=== PATIENT | female | born 1975 | race Caucasian/White ===

== ENCOUNTER 2018-08-03 09:12 | Emergency (ER) | payer SELFPAY ==
[~2018-08-03] VITALS: Ht 157.5 cm; Wt 56.4 kg
--- NOTE | 2018-08-03 09:51 | NUR ---
PT taken to room via w/c. Pt with intermittent tremors mainly with head over the last year. Tremors have gotten worse over the last 2 days. Pt states Migraine like SHORT over the last month. Pt also states off-balance today which is why she came in. Equal strength throughout. No slurred speech noted. No Facial droop. [id number]. Speaking in full sentances. Mild amount of distress noted. Breathing regular and unlabored. Pt was able to transfer from W/ to [facility] with some assitance. Pt placed on cont. pulse ox and bp. Report to Theodore.
[2018-08-03] MEDS ORDERED: SODIUM CHLORIDE FLUSH 10ML SYR IVF ONE (10:30)
[2018-08-03 10:46] LABS: BASOPHILS # (AUTO) 0.03 x10^3/uL (0-0.1); BASOPHILS % (AUTO) 0 % (0-1); EOSINOPHILS # (AUTO) 0.06 x10^3/uL (0-0.4); EOSINOPHILS % (AUTO) 1 % (1-7); LYMPHOCYTES # (AUTO) 2.84 x10^3/uL (1-3.4); LYMPHOCYTES % (AUTO) 28 % (22-44); MD NO; MEAN CORPUSCULAR HEMOGLOBIN 30.6 pg (27.0-34.8); MEAN CORPUSCULAR HGB CONC 34.2 g/dL (32.4-35.8); MEAN CORPUSCULAR VOLUME 89.7 fL (80-100); MEAN PLATELET VOLUME 7.5 fL (7.4-10.4); MONOCYTES % (AUTO) 5 % (2-9); NEUTROPHILS # (AUTO) 6.83 x10^3/uL (1.8-6.8); NEUTROPHILS % (AUTO) 67 % (42-75); PLATELET COUNT 387 x10^3/uL (130-400); RED BLOOD COUNT 5.16 x10^6/uL (3.82-5.3); RED CELL DISTRIBUTION WIDTH 13.6 % (9.6-15.2)
[2018-08-03 10:56] LABS: ANION GAP 8 mmol/L (5-15); CALCIUM 8.9 mg/dL (8.5-10.1); CHLORIDE 111 mmol/L (98-107)
[2018-08-03 11:00] LABS: HCG UR SG 1.011 (1.003-1.030); MICROSCOPIC NOT IND
[2018-08-03 11:08] LABS: ALANINE AMINOTRANSFERASE 21 U/L (12-78); ALBUMIN 4.1 g/dL (3.4-5.0); ALKALINE PHOSPHATASE 70 U/L (45-117); BILIRUBIN,TOTAL 0.4 mg/dL (0.2-1.0); CREATININE 1.07 mg/dL (0.55-1.02); TOTAL PROTEIN 7.7 g/dL (6.4-8.2)
[2018-08-03 11:30] LABS: CULTURE INDICATED? NO
[2018-08-03 12:41] VITALS: BP 118/76
== END 2018-08-03 12:44 | disposition home or self-care (01) ==
LOC: ED 11:55
DX: R25.1 Tremor, unspecified (principal); M62.81 Muscle weakness (generalized); R42 Dizziness and giddiness; R26.2 Difficulty in walking, not elsewhere classified; R47.81 Slurred speech
CPT/HCPCS: 36415; 70450; 80053; 81003; 81025; 85025; 99284